=== PATIENT | male | born 1985 | race American Indian/Alaskan Native ===

== ENCOUNTER 2017-02-13 10:19 | Emergency (ER) | payer BC ==
--- NOTE | 2017-02-13 10:24 | ED PDOC ---
Arrival/HPI - General Historian: Patient - General Time Seen by Provider: 02/13/17 10:24 - History of Present Illness Narrative History of Present Illness (Text): 02/13/17 10:24 32 y/o male, no significant pmh, nkda, c/o rt. lower back pain x 1 day with no fall or trauma. Pt. admits rt. lower back pain, non-radiating, no fever or chills, no urinary symptoms, no nausea or vomiting, no urinating symptoms, no urinating or bowel incontinence or retention, no other medical or psychological complaints. (Jin Campbell) Past Medical History - Provider Review Nursing Documentation Reviewed: Yes - Hematological/Oncological Hx Blood Transfusions: No - Anesthesia Hx Anesthesia Reactions: No Hx Malignant Hyperthermia: No Family/Social History - Physician Review Nursing Documentation Reviewed: Yes Family/Social History: Unknown Family HX Allergies/Home Meds Allergies/Adverse Reactions: Allergies No Known Allergies Allergy (Verified 06/01/15 09:02) Review of Systems - Review of Systems Constitutional: absent: Fatigue, Fevers Eyes: absent: Vision Changes ENT: absent: Hearing Changes Respiratory: absent: SOB, Cough Cardiovascular: absent: Chest Pain Gastrointestinal: absent: Vomiting Musculoskeletal: Back Pain, Myalgias. absent: Arthralgias, Neck Pain, Joint Swelling Skin: absent: Rash, Pruritis Neurological: absent: Headache, Dizziness Physical Exam Vital Signs Reviewed: Yes Temperature: Afebrile Blood Pressure: Normal Pulse: Regular Respiratory Rate: Normal Appearance: Positive for: Well-Appearing, Non-Toxic, Comfortable Pain Distress: Moderate Mental Status: Positive for: Alert and Oriented X 3 - Systems Exam Head: Present: Atraumatic, Normocephalic Pupils: Present: PERRL Extroacular Muscles: Present: EOMI Conjunctiva: Present: Normal Neck: Present: Normal Range of Motion Respiratory/Chest: Present: Clear to Auscultation, Good Air Exchange. No: Respiratory Distress, Accessory Muscle Use Cardiovascular: Present: Regular Rate and Rhythm, Normal S1, S2. No: Murmurs Abdomen: Present: Normal Bowel Sounds. No: Tenderness, Distention, Peritoneal Signs Back: Present: Normal Inspection, Paraspinal Tenderness (LS spine: mild +ttp on the rt. paraspinal region, no midline tenderness or step off, FROM without limitation, sensation intact, motor 5/5, no saddling gait, no rash. ). No: CVA Tenderness, Midline Tenderness, Pain with Leg Raise, Decubitus Ulcer Upper Extremity: Present: Normal Inspection. No: Cyanosis, Edema Lower Extremity: Present: Normal Inspection. No: Edema Neurological: Present: GCS=15, Speech Normal, Gait Normal, Memory Normal Skin: Present: Warm, Dry, Normal Color. No: Rashes Psychiatric: Present: Alert, Oriented x 3, Normal Insight, Normal Concentration Medical Decision Making ED Course and Treatment: 02/13/17 10:41 -Toradol IM -No emergent indication of labs or radiology studies indicated at this time. -Discharge home with naproxen, flexeril, heat compression, follow up with your own pmd within 2 days, return to the ER for any new or worsening signs or symptoms. (Jin Campbell) 02/13/17 10:52 I was available for consultation during PA evaluation. The chart was reviewed by me, and I agree with disposition. The documented history was done by the physician edger liner. The documented physical exam was done by the physician edger liner. The documented procedures were done by the physician edger liner. 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 Disposition/Present on Arrival - Present on Arrival Any Indicators Present on Arrival: No History of DVT/PE: No History of Uncontrolled Diabetes: No Urinary Catheter: No History of Decub. Ulcer: No - Disposition Have Diagnosis and Disposition been Completed?: Yes Disposition Time: 10:42 Patient Plan: Discharge - Disposition Diagnosis: Back pain Disposition: HOME/ ROUTINE Condition: GOOD Additional Instructions: Discharge home with naproxen, flexeril, heat compression, follow up with your own pmd within 2 days, return to the ER for any new or worsening signs or symptoms. Prescriptions: Cyclobenzaprine [Cyclobenzaprine HCl] 10 mg PO TID PRN #21 tab PRN Reason: other Naproxen 500 mg PO BID PRN #20 tab PRN Reason: Other [place]errals: [facility] [place] [facility] [place] - Follow up with primary Forms: WORK NOTE
[2017-02-13 10:32] VITALS: BMI 24.3
[2017-02-13 10:35] VITALS: BP 136/87; PULSE 82; RESP 18; TEMP 99.1; O2SAT 95
== END 2017-02-13 11:20 | disposition home or self-care (01) ==
LOC: ED 10:19
DX: M54.5 Low back pain (principal)
CPT/HCPCS: 96372; 99282; J1885

== ENCOUNTER 2018-03-01 04:31 | Emergency (ER) | payer BC ==
[2018-03-01 04:32] VITALS: BMI 24.3
[2018-03-01 04:52] VITALS: RESP 18; TEMP 98.6
--- NOTE | 2018-03-01 05:28 | ED PDOC ---
Arrival/HPI - General Historian: Patient - History of Present Illness Time/Duration: 24 hours Symptom Onset: Sudden Symptom Course: Worsening Quality: Stabbing <Dat Chahal - Last Filed: 03/01/18 06:25> <Maykel Magaña - Last Filed: 03/03/18 11:33> - General Chief Complaint: Lower Extremity Problem/Injury Time Seen by Provider: 03/01/18 04:45 - History of Present Illness Narrative History of Present Illness (Text): 03/01/18 05:25 33 year old male, no significant past medical history, presents to the emergency department with left toe pain since 1 day. Patient states yesterday he woke up with sharp pain in the left toe and associated swelling and warmth. The pain worsened over time. He took motrin at 1am which did not help. The pain is constant and nonradiating. He has difficulty with ambulation. He had a similar episode 1 month ago in which he states the pain resolved over a few days. Patient denies any trauma to the toe. Denies fever, chills, nausea, vomiting, shortness of breath, chest pain, headache, dizziness, abdominal pain, or urinary symptoms. 03/01/18 05:32 (Dat Chahal) Past Medical History - Provider Review Nursing Documentation Reviewed: Yes - Infectious Disease Hx of Infectious Diseases: None - Hematological/Oncological Hx Blood Transfusions: No - Psychiatric Hx Substance Use: No - Anesthesia Hx Anesthesia: No Hx Anesthesia Reactions: No Hx Malignant Hyperthermia: No <Dat Chahal - Last Filed: 03/01/18 06:25> Family/Social History - Physician Review Nursing Documentation Reviewed: Yes Family/Social History: No Known Family HX Smoking Status: Never Smoked Hx Alcohol Use: Yes Frequency of alcohol use: Socially Hx Substance Use: No <Dat Chahal - Last Filed: 03/01/18 06:25> Allergies/Home Meds <Dat Chahal - Last Filed: 03/01/18 06:25> <Maykel Magaña - Last Filed: 03/03/18 11:33> Allergies/Adverse Reactions: Allergies No Known Allergies Allergy (Verified 03/01/18 04:48) Review of Systems - Physician Review All systems were reviewed & negative as marked: Yes - Review of Systems Constitutional: absent: Fevers Respiratory: absent: SOB, Cough Cardiovascular: absent: Chest Pain, Palpitations Gastrointestinal: absent: Abdominal Pain, Nausea, Vomiting Genitourinary Male: absent: Dysuria, Hematuria Musculoskeletal: Other (left toe pain) Skin: absent: Rash, Pruritis, Skin Lesions Neurological: absent: Headache, Dizziness Endocrine: absent: Diaphoresis <DuncanmarialuisaDat - Last Filed: 03/01/18 06:25> Physical Exam Vital Signs Reviewed: Yes Temperature: Afebrile Blood Pressure: Hypertensive Pulse: Regular Respiratory Rate: Normal Appearance: Positive for: Well-Appearing, Non-Toxic, Comfortable Pain Distress: Mild Mental Status: Positive for: Alert and Oriented X 3 - Systems Exam Head: Present: Atraumatic, Normocephalic Pupils: Present: PERRL Extroacular Muscles: Present: EOMI Mouth: Present: Moist Mucous Membranes Respiratory/Chest: Present: Clear to Auscultation, Good Air Exchange. No: Respiratory Distress, Accessory Muscle Use Cardiovascular: Present: Regular Rate and Rhythm, Normal S1, S2. No: Murmurs Abdomen: No: Tenderness, Distention, Peritoneal Signs Upper Extremity: Present: NORMAL PULSES Lower Extremity: Present: Other (Tenderness and warmth on left greater digit, no erythema or swelling noted) Skin: Present: Warm, Dry Psychiatric: Present: Alert, Oriented x 3 <TirsoDat - Last Filed: 03/01/18 06:25> Vital Signs Temp Pulse Resp BP Pulse Ox 03/01/18 06:30 68 18 145/79 100 03/01/18 04:49 98.6 F 67 18 149/70 98 Medical Decision Making <Dat Chahal - Last Filed: 03/01/18 06:25> <Maykel Magaña - Last Filed: 03/03/18 11:33> ED Course and Treatment: 03/01/18 05:30 33M presents to the ED with new onset left greater toe pain since 1 day. Uric Acid, CBC, CMP, and Left greater toe x-ray ordered. 03/01/18 06:18 EXAM: XR Left Toe(s), 2 or More Views EXAM DATE/TIME: 03/01/2018 5:22 AM CLINICAL HISTORY: 33 years old, male; Pain; Toes; Left; Additional info: Left toe pain, R/O effusion TECHNIQUE: XR Left toes minimum 2 views. COMPARISON: No relevant prior studies available. FINDINGS: Bones/joints: Soft tissue swelling is identified without underlying fracture or subluxation. Soft tissues: Normal. IMPRESSION: Soft tissue swelling is identified without underlying fracture or subluxation. Thank you for allowing us to participate in the care of your patient. CMP shows elevated Calcium. Uric acid within normal limits. Suspect pseudogout vs. chondrocalcinosis vs. gout attack 03/01/18 06:31 Provided patient with prescription for indomethicin Q12 for 5 days. Advised patient to follow up with PMD within 3-5 days. If symptoms worsen, please return to the ED. Patient verbalized understanding and agreement of the treatment plan. Case reviewed and discussed with attending provider. (Dat Chahal) 03/01/18 05:37 In agreement with resident note, which includes further HPI details. Patient was seen and evaluated with resident, came up with plan and treatment together. (Maykel Magaña) - Lab Interpretations Lab Results: 03/01/18 05:30 03/01/18 05:30 Lab Results 03/01/18 05:30: Sodium 142, Potassium 4.1, Chloride 106, Carbon Dioxide 26, Anion Gap 14, BUN 16, Creatinine 1.4, Est GFR ( Amer) > 60, Est GFR (Non- Af Amer) 58, Random Glucose 114 H, Uric Acid 7.4, Calcium 11.7 H, Phosphorus 4.3 , Magnesium 2.0, Total Bilirubin 0.6, AST 31, ALT 27, Alkaline Phosphatase 49, Total Protein 7.7, Albumin 4.3, Globulin 3.4, Albumin/Globulin Ratio 1.2 03/01/18 05:30: WBC 6.1, RBC 4.99, Hgb 13.7 L, Hct 39.3 L, MCV 78.8 L, MCH 27.5 , MCHC 34.9, RDW 13.7, Plt Count 226, MPV 9.4, Gran % 51.4, Lymph % (Auto) 34.7 , Garland % (Auto) 9.6 H, Eos % (Auto) 4.0, Baso % (Auto) 0.3, Gran # 3.12, Lymph # (Auto) 2.1, Garland # (Auto) 0.6, Eos # (Auto) 0.2, Baso # (Auto) 0.02 - RAD Interpretation Radiology Orders: 03/01/18 05:22 FOOT LEFT GREAT TOE ROUTINE [RAD] Stat - Medication Orders Current Medication Orders: Discontinued Medications Ketorolac Tromethamine (Toradol) 15 mg IM STAT STA Stop: 03/01/18 05:34 Last Admin: 03/01/18 05:58 Dose: 15 mg MAR Pain Assessment Document 03/01/18 05:58 AD (Rec: 03/01/18 05:59 AD [id number]) Pain Reassessment Is this a pain reassessment? 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 DIONI has examined the patient and agrees with the treatment plan. <Maykel Magaña - Last Filed: 03/03/18 11:33> Disposition/Present on Arrival - Present on Arrival Any Indicators Present on Arrival: No History of DVT/PE: No History of Uncontrolled Diabetes: No Urinary Catheter: No History of Decub. Ulcer: No History Surgical Site Infection Following: None - Disposition Have Diagnosis and Disposition been Completed?: Yes Disposition Time: 06:22 Patient Plan: Discharge <Dat Chahal - Last Filed: 03/01/18 06:25> <Maykel Magaña - Last Filed: 03/03/18 11:33> - Disposition Diagnosis: Pseudogout of foot Disposition: HOME/ ROUTINE Condition: GOOD Discharge Instructions (ExitCare): Calcium Pyrophosphate Deposition DiseaseDischarge Instructions (DC) Additional Instructions: Will provide prescription for indomethicin, please take as instructed. Please follow up with your primary medical doctor within 3-5 days. If symptoms worsen, please return to the emergency room. Prescriptions: Indomethacin [Indocin] 50 mg PO Q12H 5 Days #10 cap Referrals: Fransisco Villar DO [Primary Care Provider] - Follow up with primary Forms: [employer] ([place]rainian)
[2018-03-01 06:08] LABS: BASO # 0.02 K/mm3 (0.0-2.0); BASO % 0.3 % (0.0-3.0); EOS # 0.2 (0.0-0.7); GRAN # 3.12 (1.4-6.5); GRAN % 51.4 % (50.0-68.0); HEMOGLOBIN 13.7 g/dL (14.0-18.0); LYMPH # 2.1 (1.2-3.4); LYMPH % 34.7 % (22.0-35.0); MEAN CELL VOLUME 78.8 fl (80.0-105.0); MEAN CORPUSCULAR HEMOGLOBIN 27.5 pg (25.0-35.0); MEAN CORPUSCULAR HGB CONC 34.9 g/dl (31.0-37.0); MEAN PLATELET VOLUME 9.4 fl (7.0-11.0); MONO # 0.6 (0.1-0.6); MONO % 9.6 % (1.0-6.0); RBC 4.99 10^6/uL (3.5-6.1); RED CELL DISTRIBUTION WIDTH 13.7 % (11.5-14.5); WHITE BLOOD COUNT 6.1 10^3/ul (4.5-11.0)
[2018-03-01 06:15] LABS: ALB/GLOB RATIO 1.2 (1.1-1.8); ALBUMIN 4.3 g/dL (3.0-4.8); ALT/SGPT 27 U/L (7-56); AST/SGOT 31 U/L (17-59); BLOOD UREA NITROGEN 16 mg/dL (7-21); CALCIUM 11.7 mg/dL (8.4-10.5); GFR NON-AFRICAN AMERICAN 58; URIC ACID 7.4 mg/dL (3.5-8.5)
[2018-03-01 07:24] VITALS: BP 145/79; PULSE 68; O2SAT 100
--- NOTE | 2018-03-01 09:38 | RAD ---
PROCEDURE: Radiographs of the left great toe. TECHNIQUE:: AP radiograph of the left foot, with oblique and lateral view of the left great toe. COMPARISON: None. FINDINGS: BONES: Normal. No fracture. JOINTS: Normal. SOFT TISSUES: Normal. OTHER FINDINGS: None. IMPRESSION: Normal left great toe radiographs.
== END 2018-03-01 06:30 | disposition home or self-care (01) ==
LOC: ED 04:31
DX: M11.272 Other chondrocalcinosis, left ankle and foot (principal)
CPT/HCPCS: 73660; 80053; 83735; 84100; 84550; 85025; 96372; 99283; J1885